=== PATIENT | female | born 1985 | race African-American/Black ===

== ENCOUNTER 2017-08-26 18:16 | Emergency (ER) | payer MEDICARE, OTHER ==
[~2017-08-26] VITALS: Ht 165.1 cm; Wt 70.3 kg
[~2017-08-26 18:16] MED LIST: BACL10TA PO; BENZ1TAB PO; ILOP12TA2 PO; LORA2TAB PO; MIDO5TAB PO; OLAN15TA3 PO; OMEP40CA PO; ONDA4TAB5 PO; ZOLP10TA2 PO; [UNRECOGNIZED DRUG - CODE] PO
[2017-08-26] MEDS ORDERED: ACET1TAB14 PO (18:26)
[2017-08-26] MEDS ORDERED: HYDR4TAB4 PO (18:26)
[2017-08-26] MEDS ORDERED: HYDR-3326 PO (18:26)
--- NOTE | 2017-08-26 18:46 | NUR ---
PT IS IN ROOM #1B. DR FERRELL EVALUATED THE PT.
[2017-08-26] MEDS ORDERED: ONDANSETRON 4 MG/2 ML VIAL IV ONE (19:00)
[2017-08-26] MEDS ORDERED: IV NORMAL SALINE 1000 ML BAG IV ONE (19:00)
[2017-08-26 19:09] LABS: BASOPHILS # (AUTO) 0.2 K/uL (0.0-8.0); BASOPHILS % (AUTO) 1.5 % (0.0-2.0); EOSINOPHILS % (AUTO) 0.2 % (0.0-7.0); HEMATOCRIT 43.3 % (37-47); HEMOGLOBIN 14.4 G/DL (12.0-16.0); LYMPHOCYTES # (AUTO) 1.4 K/UL (0.8-4.8); LYMPHOCYTES % (AUTO) 12.3 % (20.5-51.5); MEAN CORPUSCULAR HEMOGLOBIN 30.3 UUG (27.0-31.0); MEAN CORPUSCULAR HGB CONC 33 g/dL (32.0-37.0); MEAN CORPUSCULAR VOLUME 90.7 FL (81.0-99.0); MONOCYTES # (AUTO) 1.1 K/UL (0.1-1.30); MONOCYTES % (AUTO) 9.8 % (0.0-11.0); NEUTROPHILS # (AUTO) 8.4 K/UL (1.8-8.9); NEUTROPHILS % (AUTO) 76.2 % (38.5-71.5); PLATELET COUNT (AUTO) 312 K/UL (150-450); RED BLOOD CELL COUNT(AUTO) 4.77 MIL/UL (4.2-5.4); WHITE BLOOD COUNT (AUTO) 11.1 K/UL (4.0-11.2)
[2017-08-26 19:12] LABS: CREATININE 0.8 mg/dL (0.6-1.3); POTASSIUM 3.8 mmol/L (3.5-5.1)
[2017-08-26 19:17] LABS: BILIRUBIN,DIRECT 0.1 mg/dL (0.0-0.2); BILIRUBIN,TOTAL 0.5 mg/dL (0.2-1.0); TOTAL PROTEIN, SERUM 8.1 g/dL (6.4-8.2)
[2017-08-26] MEDS ORDERED: ONDANSETRON 4 MG/2 ML VIAL ONE ×2 (19:20→19:48)
[2017-08-26] MEDS ORDERED: LORAZEPAM 2 MG/1 ML VIAL IV ONE (19:30)
[2017-08-26] MEDS ORDERED: LORAZEPAM 2 MG/1 ML VIAL ONE (19:41)
[2017-08-26] MEDS ORDERED: ONDANSETRON IV *ER 4 MG/2 ML VIAL IV ONE (19:45)
[2017-08-26 19:47] LABS: BAND % (MANUAL) 17 % (0-10); LYMPHOCYTES % (MANUAL) 15 % (20-40); MONOCYTES % (MANUAL) 14 % (2-10); NEUTROPHILS % (MANUAL) 54 % (42-75)
[2017-08-26] MEDS ORDERED: PROCHLORPERAZINE EDISYLATE 10 MG/2 ML VIAL IV ONE (20:00)
--- NOTE | 2017-08-26 20:14 | NUR ---
Juan Alberto carver in [facility] - 08/26/17 at 2015 by [id number] PATIENT TOLERATED PO WATER WITH MEDICATIONS. WILL MONITOR.
[2017-08-26] MEDS ORDERED: PROCHLORPERAZINE EDISYLATE 10 MG/2 ML VIAL ONE (20:16)
--- NOTE | 2017-08-26 20:55 | NUR ---
Patient discharged to home in stable conditon. Written and verbal after care instructions given. Patient verbalizes understanding of instructions. PATIENT LEFT WITH STABLE GAIT, ACCOMPANIED BY MOTHER.
[2017-08-26 21:25] VITALS: BP 101/58
== END 2017-08-26 21:25 | disposition home or self-care (01) ==
LOC: ER 18:18
DX: R11.2 Nausea with vomiting, unspecified (principal); R10.9 Unspecified abdominal pain; Z76.5 Malingerer [conscious simulation]; F11.20 Opioid dependence, uncomplicated; F13.20 Sedative, hypnotic or anxiolytic dependence, uncomplicated; F25.9 Schizoaffective disorder, unspecified; G89.29 Other chronic pain; K21.9 Gastro-esophageal reflux disease without esophagitis; Z90.49 Acquired absence of other specified parts of digestive tract
CPT/HCPCS: 36415; 83690; 84703; 85025; A4663; J0780; J2060; J2405; J7030

== ENCOUNTER 2018-06-05 01:18 | Emergency (ER) | payer MEDICARE, OTHER ==
[~2018-06-05] VITALS: Ht 165.1 cm; Wt 67.6 kg
[~2018-06-05 01:18] MED LIST changes: +ACET1TAB14 PO; +HYDR-3326 PO; +HYDR4TAB4 PO; -OMEP40CA PO; -ONDA4TAB5 PO
--- NOTE | 2018-06-05 02:29 | NUR ---
Patient discharged to home in stable conditon. Written and verbal after care instructions given. Patient verbalizes understanding of instructions.
[2018-06-05 02:34] VITALS: BP 108/59
== END 2018-06-05 02:35 | disposition home or self-care (01) ==
LOC: ER 01:25
DX: B02.9 Zoster without complications (principal); K21.9 Gastro-esophageal reflux disease without esophagitis; Z90.49 Acquired absence of other specified parts of digestive tract; Z88.6 Allergy status to analgesic agent; Z88.8 Allergy status to other drugs, medicaments and biological substances
CPT/HCPCS: A4663

== ENCOUNTER 2019-04-16 19:46 | Emergency (ER) | payer MEDICARE, OTHER ==
[~2019-04-16] VITALS: Ht 165.1 cm; Wt 68.0 kg
--- NOTE | 2019-04-16 20:24 | NUR ---
NAVIN ALAMO at bedside.
[2019-04-16 20:38] LABS: BASOPHILS % (AUTO) 0.2 % (0.0-2.0); EOSINOPHILS # (AUTO) 0.1 K/uL (0.0-0.7); EOSINOPHILS % (AUTO) 0.8 % (0.0-7.0); HEMOGLOBIN 12.6 g/dL (10.9-14.3); LYMPHOCYTES % (AUTO) 38.3 % (20.5-51.5); MEAN CORPUSCULAR HEMOGLOBIN 29.8 uug (24.7-32.8); MEAN CORPUSCULAR HGB CONC 34 g/dL (32.3-35.6); MEAN CORPUSCULAR VOLUME 87.6 fL (75.5-95.3); MONOCYTES # (AUTO) 0.8 K/uL (2.0-10.0); MONOCYTES % (AUTO) 10.5 % (0.0-11.0); NEUTROPHILS # (AUTO) 3.9 K/uL (1.8-8.9); NEUTROPHILS % (AUTO) 50.2 % (38.5-71.5); PLATELET COUNT (AUTO) 336 K/uL (179-408); RED BLOOD CELL COUNT(AUTO) 4.22 MIL/uL (3.63-4.92); WHITE BLOOD COUNT (AUTO) 7.8 K/uL (3.8-11.8)
[2019-04-16 20:49] LABS: BILIRUBIN,DIRECT 0.1 mg/dL (0.0-0.2); BILIRUBIN,TOTAL 0.3 mg/dL (0.2-1.0); POTASSIUM 3.8 mmol/L (3.5-5.1); TOTAL PROTEIN, SERUM 6.9 g/dL (6.4-8.2)
--- NOTE | 2019-04-16 21:06 | NUR ---
Patient discharged to home in stable conditon. Written and verbal after care instructions given. Patient verbalizes understanding of instructions. Ambulated from ER with stable gait. All belongings with patient.
[2019-04-16 21:09] VITALS: BP 111/70
== END 2019-04-16 21:10 | disposition home or self-care (01) ==
LOC: ER 19:46
DX: Z00.00 Encounter for general adult medical examination without abnormal findings (principal); K21.9 Gastro-esophageal reflux disease without esophagitis; Z90.49 Acquired absence of other specified parts of digestive tract; Z88.5 Allergy status to narcotic agent; Z88.8 Allergy status to other drugs, medicaments and biological substances; Z79.899 Other long term (current) drug therapy
CPT/HCPCS: 36415; 85025; A4663

== ENCOUNTER 2019-05-07 03:03 | Emergency (ER) | payer MEDICARE, MEDICAID ==
[~2019-05-07] VITALS: Ht 165.1 cm; Wt 68.0 kg
--- NOTE | 2019-05-07 03:21 | NUR ---
Patient BIB mother and brother from home via wheel for c/o taking a total of 6mg ativan in a span of 1hr and codeine for her abdominal pain. Patient upon arrival A/Ox3,speaking clearly. No distress noted. Place in room 2b. Dr Chavez into eval patient.
--- NOTE | 2019-05-07 03:37 | NUR ---
Patient discharged to home in stable conditon. Written and verbal after care instructions given. Patient verbalizes understanding of instructions. Pt. d/c per MD order, d/c papers signed, all belongings w/ pt., ID band removed, pt. taken off unit in personal wheelchair, NAD
== END 2019-05-07 03:42 | disposition home or self-care (01) ==
LOC: ER 03:07
DX: T42.4X1A Poisoning by benzodiazepines, accidental (unintentional), initial encounter (principal); K21.9 Gastro-esophageal reflux disease without esophagitis; G43.909 Migraine, unspecified, not intractable, without status migrainosus; Z90.49 Acquired absence of other specified parts of digestive tract; Z88.8 Allergy status to other drugs, medicaments and biological substances; Z88.5 Allergy status to narcotic agent; Z79.899 Other long term (current) drug therapy; Y92.89 Other specified places as the place of occurrence of the external cause
CPT/HCPCS: A4663

== ENCOUNTER 2019-08-12 01:49 | Emergency (ER) | payer MEDICARE, MEDICAID ==
[~2019-08-12] VITALS: Ht 165.1 cm; Wt 70.3 kg
--- NOTE | 2019-08-12 02:20 | NUR ---
Dr. Butler at bedside for MSE.
[2019-08-12] MEDS ORDERED: NEOMY/BACITRA/POLYMYXIN B OINT UD PACKET TP ONE (02:32)
[2019-08-12] MEDS: NEOMY/BACITRA/POLYMYXIN B OINT UD PACKET TP ONE (02:32)
--- NOTE | 2019-08-12 02:33 | NUR ---
Patient discharged to home in stable conditon. Written and verbal after care instructions given. Patient verbalizes understanding of instructions. Pt ambulated out of ER with steady gait, no acute signs of distress, VSS, all belongings taken.
[2019-08-12 02:35] VITALS: BP 89/55
== END 2019-08-12 02:35 | disposition home or self-care (01) ==
LOC: ER 01:52
DX: T40.2X1A Poisoning by other opioids, accidental (unintentional), initial encounter (principal); H66.92 Otitis media, unspecified, left ear; K21.9 Gastro-esophageal reflux disease without esophagitis; F20.9 Schizophrenia, unspecified; Z90.49 Acquired absence of other specified parts of digestive tract; Z88.5 Allergy status to narcotic agent; Z88.8 Allergy status to other drugs, medicaments and biological substances; Z79.899 Other long term (current) drug therapy; Z79.891 Long term (current) use of opiate analgesic; Y92.89 Other specified places as the place of occurrence of the external cause
CPT/HCPCS: A4663

== ENCOUNTER 2021-08-16 03:55 | Emergency (ER) | payer MEDICARE, BC ==
[~2021-08-16] VITALS: Ht 165.1 cm; Wt 77.1 kg
[~2021-08-16 03:55] MED LIST changes: -MIDO5TAB PO; +MIDO5TAB5 PO
--- NOTE | 2021-08-16 04:30 | NUR ---
Dr. Gaspar at bedside for MSE.
[2021-08-16] MEDS ORDERED: ONDA4TAB5 PO (04:35)
[2021-08-16] MEDS ORDERED: TDAP DIPH,PERTUSS,TET VAC/PF 0.5 ML DISP.SYRIN IM ONE ×2 (04:43→04:45)
[2021-08-16 04:48] VITALS: BP 98/62
--- NOTE | 2021-08-16 04:48 | NUR ---
Patient discharged to home in stable condition. Written and verbal after care instructions given. Patient verbalizes understanding of instructions. Stressed follow up or return to ER for worsening s/s. Patient out of ER via wheelchair, no acute signs of distress, VSS, all belongings taken.
== END 2021-08-16 04:49 | disposition home or self-care (01) ==
LOC: ER 04:00
DX: S01.01XA Laceration without foreign body of scalp, initial encounter (principal); W01.0XXA Fall on same level from slipping, tripping and stumbling without subsequent striking against object, initial encounter; Y92.031 Bathroom in apartment as the place of occurrence of the external cause; F25.9 Schizoaffective disorder, unspecified; Z90.49 Acquired absence of other specified parts of digestive tract; Z79.899 Other long term (current) drug therapy
CPT/HCPCS: 90715; A4663; J3490

== ENCOUNTER 2021-08-28 03:45 | Emergency (ER) | payer MEDICARE, BC ==
[~2021-08-28] VITALS: Ht 165.1 cm; Wt 77.1 kg
[~2021-08-28 03:45] MED LIST changes: +ONDA4TAB5 PO
--- NOTE | 2021-08-28 03:52 | NUR ---
Dr. Gaspar at bedside for staple removal.
--- NOTE | 2021-08-28 03:56 | NUR ---
Patient discharged to home in stable condition. Written and verbal after care instructions given. Patient verbalizes understanding of instructions. Stressed follow up or return to ER for worsening s/s.
[2021-08-28 03:57] VITALS: BP 110/67
== END 2021-08-28 03:57 | disposition home or self-care (01) ==
LOC: ER 03:47
DX: S01.01XD Laceration without foreign body of scalp, subsequent encounter (principal); X58.XXXD Exposure to other specified factors, subsequent encounter; F25.9 Schizoaffective disorder, unspecified; Z88.5 Allergy status to narcotic agent; Z88.8 Allergy status to other drugs, medicaments and biological substances; Z90.49 Acquired absence of other specified parts of digestive tract; Z79.899 Other long term (current) drug therapy
CPT/HCPCS: A4663

== ENCOUNTER 2021-12-14 04:49 | Emergency (ER) | payer MEDICARE, BC ==
[~2021-12-14] VITALS: Ht 165.1 cm; Wt 80.7 kg
--- NOTE | 2021-12-14 04:57 | NUR ---
patient assessed and placed in room 1A, bed at lowest position, bed rails up
--- NOTE | 2021-12-14 05:02 | NUR ---
Dr Gaspar at bedside assessing patient
[2021-12-14] MEDS ORDERED: NEOM10DR11 EACH EAR (05:16)
[2021-12-14] MEDS ORDERED: OXYC-128 PO (05:16)
[2021-12-14] MEDS ORDERED: OXYCODONE/APAP 5-325 MG TABLET ONE (05:29)
[2021-12-14 05:42] VITALS: BP 96/70
[2021-12-14] MEDS ORDERED: OXYCODONE/APAP 5-325 MG TABLET PO ONE (05:45)
== END 2021-12-14 05:30 | disposition home or self-care (01) ==
LOC: ER 04:49
DX: H60.91 Unspecified otitis externa, right ear (principal); F25.9 Schizoaffective disorder, unspecified; Z90.49 Acquired absence of other specified parts of digestive tract; Z88.5 Allergy status to narcotic agent; Z88.8 Allergy status to other drugs, medicaments and biological substances
CPT/HCPCS: A4663

== ENCOUNTER 2022-05-19 22:31 | Emergency (ER) | payer MEDICARE, BC ==
[~2022-05-19] VITALS: Ht 165.1 cm; Wt 77.1 kg
[~2022-05-19 22:31] MED LIST changes: +NEOM10DR11 EACH EAR; +OXYC-128 PO
--- NOTE | 2022-05-20 00:15 | NUR ---
AFTER BEING TRIAGED PATIENT, PATIENT'S MOTHER AND BROTHER ALL STATED SHE DID NOT WANTED TO BE SEEN ANYMORE AND WILL FOLLOW UP WITH PMD IN THE AM.
== END 2022-05-20 00:15 | disposition left against medical advice (07) ==
LOC: ER 22:31
DX: Z53.21 Procedure and treatment not carried out due to patient leaving prior to being seen by health care provider (principal)

== ENCOUNTER 2023-07-01 18:12 | Emergency (ER) | payer MEDICARE, BC ==
[~2023-07-01] VITALS: Ht 170.2 cm; Wt 79.4 kg
[2023-07-01 18:40] VITALS: BP 120/83; O2SAT 100
== END 2023-07-01 18:42 | disposition home or self-care (01) ==
LOC: ER 18:31
DX: R09.89 Other specified symptoms and signs involving the circulatory and respiratory systems (principal); G89.4 Chronic pain syndrome; F20.9 Schizophrenia, unspecified; F41.9 Anxiety disorder, unspecified; G43.909 Migraine, unspecified, not intractable, without status migrainosus; K21.9 Gastro-esophageal reflux disease without esophagitis; Z90.49 Acquired absence of other specified parts of digestive tract; Z88.5 Allergy status to narcotic agent; Z88.8 Allergy status to other drugs, medicaments and biological substances; Z79.899 Other long term (current) drug therapy
CPT/HCPCS: A4663

== ENCOUNTER 2024-04-08 03:16 | Emergency (ER) | payer MEDICARE, MEDICAID ==
[~2024-04-08] VITALS: Ht 165.1 cm; Wt 83.0 kg
[~2024-04-08 03:16] MED LIST changes: +ALBU18HF2 INH; +BUDE10.22 INH
[2024-04-08] MEDS ORDERED: ONDANSETRON 4 MG/2 ML VIAL ONE (04:28)
[2024-04-08] MEDS ORDERED: KETOROLAC TROMETHAMINE 30 MG INJ ONE ×2 (04:28→07:04)
[2024-04-08 04:29] LABS: *BILIRUBIN,URIN NEGATIVE (NEGATIVE); *BLOOD, URINE 3+ (NEGATIVE); *COLOR,URINE YELLOW (YELLOW); *KETONES,URINE NEGATIVE (NEGATIVE); *PROTEIN,URINE NEGATIVE (NEGATIVE); *UROBILINOGEN,URINE 0.2 E.U./dl (NORMAL); LEUKOCYTE ESTERASE ,URINE TRACE (NEGATIVE); NITRITE, URINE NEGATIVE (NEGATIVE); UGLUCOSE NEGATIVE (NEGATIVE)
[2024-04-08 04:40] LABS: *CLARITY,URINE HAZY (CLEAR)
[2024-04-08] MEDS: IV NS 1000 ML 1,000 ML IV ONE ×2 (04:53→06:10)
[2024-04-08] MEDS: ONDANSETRON 4 MG/2 ML VIAL IV ONE (04:53)
[2024-04-08] MEDS: KETOROLAC TROMETHAMINE 30 MG INJ IVP ONE ×2 (04:53→07:40)
[2024-04-08 05:01] LABS: BACTERIA,URINE FEW /HPF (NONE SEEN); RBC,URINE TNTC /HPF (0-3); SQUAMOUS EPITHELIAL CELL,UR MODERATE /HPF (NONE SEEN)
[2024-04-08 05:18] LABS: BASOPHILS % (AUTO) 0.2 % (0.0-2.0); EOSINOPHILS # (AUTO) 0.1 K/uL (0.0-0.7); EOSINOPHILS % (AUTO) 0.5 % (0.0-7.0); HEMATOCRIT 42.9 % (31.2-41.9); HEMOGLOBIN 14.9 g/dL (10.9-14.3); LYMPHOCYTES # (AUTO) 3.8 K/uL (0.8-4.8); LYMPHOCYTES % (AUTO) 21.3 % (20.5-51.5); MEAN CORPUSCULAR HEMOGLOBIN 31.9 uug (24.7-32.8); MEAN CORPUSCULAR HGB CONC 35 g/dL (32.3-35.6); MEAN CORPUSCULAR VOLUME 91.7 fL (75.5-95.3); MONOCYTES # (AUTO) 1.3 K/uL (0.1-1.30); MONOCYTES % (AUTO) 7.5 % (0.0-11.0); NEUTROPHILS # (AUTO) 12.5 K/uL (1.8-8.9); NEUTROPHILS % (AUTO) 70.5 % (38.5-71.5); PLATELET COUNT (AUTO) 407 K/uL (179-408); RED BLOOD CELL COUNT(AUTO) 4.68 MIL/uL (3.63-4.92); RED CELL DISTRIBUTION WIDTH 12.8 % (12.3-17.7); WHITE BLOOD COUNT (AUTO) 17.7 K/uL (3.8-11.8)
[2024-04-08 05:25] LABS: DIFFERENTIAL COMMENT 1
[2024-04-08 05:45] LABS: LACTIC ACID 2.2 mmol/L (0.4-2.0)
[2024-04-08 05:46] LABS: *URINE HCG, QUAL NEGATIVE (NEGATIVE)
[2024-04-08 05:56] LABS: CALCIUM 10.6 mg/dL (8.5-10.1); CREATININE 0.8 mg/dL (0.6-1.3)
[2024-04-08 06:02] LABS: ALBUMIN 3.8 g/dL (3.4-5.0); BILIRUBIN,TOTAL 0.5 mg/dL (0.2-1.0); TOTAL PROTEIN, SERUM 7.9 g/dL (6.4-8.2)
[2024-04-08] MEDS ORDERED: CEFTRIAXONE /D5W 50ML IVPB **ER PYXIS IV ONE (06:06)
[2024-04-08] MEDS ORDERED: ONDA4TAB5 PO (06:11)
[2024-04-08] MEDS: CEFTRIAXONE 1 G in IV DEXTROSE 5% 50 ML IV ONE (06:42)
[2024-04-08] MEDS ORDERED: ACETAMINOPHEN ES 500 MG TABLET ONE (06:55)
[2024-04-08] MEDS ORDERED: IBUPROFEN 400 MG TABLET ONE (06:55)
[2024-04-08] MEDS: IBUPROFEN 400 MG TABLET PO ONE (07:03)
[2024-04-08] MEDS: ACETAMINOPHEN ES 500 MG TABLET PO ONE (07:03)
[2024-04-08] MEDS: IV NORMAL SALINE 1000 ML BAG IV ONE (09:31)
[2024-04-08] MEDS ORDERED: CODE30TA PO (09:35)
[2024-04-08] MEDS ORDERED: CEPH750C9 PO (09:36)
[2024-04-08 10:08] VITALS: BP 129/72; TEMP 98.1; O2SAT 98
== END 2024-04-08 11:02 | disposition left against medical advice (07) ==
LOC: ER 03:21
DX: R10.84 Generalized abdominal pain (principal); J45.909 Unspecified asthma, uncomplicated; R10.2 Pelvic and perineal pain; K21.9 Gastro-esophageal reflux disease without esophagitis; Z90.49 Acquired absence of other specified parts of digestive tract; Z79.899 Other long term (current) drug therapy; Z88.5 Allergy status to narcotic agent
CPT/HCPCS: 99284; 96365; 96361; 96375; 80053; 81001; 82248; 84703; 83690; 85025; 87040; 36415; 96376; 83605 ×2; 87086; J0696; J1885 ×2; J2405; J7040 ×2; A4606; A4663; A9150